=== PATIENT | female | born 1955 | race Caucasian/White ===

== ENCOUNTER 2021-07-05 08:51 | Inpatient (IN) | payer MEDICARE ==
[~2021-07-05] VITALS: Ht 177.8 cm; Wt 71.7 kg
[~2021-07-05 08:51] MED LIST: ADVIL200 MG PO; AEROCHAMBER1 PKT INH; AZITHROMYCIN250 MG PO; BENADRYL25 MG PO; CALCIUM 600 +1 EAC5 PO; CYMBALTA20 MG PO; CYMBALTA30 MG PO; PREDNISONE20 MG PO; PROVENTIL HFA6.7 GM INH; SLEEP AID25 M1 PO; XANAX1 MG PO; ZYPREXA10 MG PO; ZYPREXA15 MG PO
--- OUTSIDE RECORDS SUMMARY | 2021-07-05 08:54 | XMS ---
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 [place] has no Care Guidelines for this patient. [place] VISIT COUNT (12 MO.) 1 ZAY Quevedo TOTAL 1 NOTE: Visits indicate total known visits. ED/C VISIT TRACKING (12 MO.) 07/05/2021 08:52 ZAY Santoro OR TYPE: Emergency COMPLAINT: - WEAKNESS, DIFFICULTY BREATHING INPATIENT VISIT TRACKING (12 MO.) No inpatient visits to display in this time frame [id number]
--- NOTE | 2021-07-05 12:54 | NUR ---
PATIENT ASSESSMENT COMPLETE. MEDICATIONS GIVEN ORDERED. PATIENT OXYGEN SATURATION IS 97 ON 3 LITERS OF OXYGEN. AUDIBLE WHEEZING THROUGHOUT LUNGS. PATIENT DENIES SHORTNESS OF BREATH AND COUGH. RR IS 19. PATIENT HEART RATE IS 81 BPM AND IS IN A SINUS RHYTHM. PATIENT IS INCONTIENT OF URINE AND LAST BM WAS 07/03/21. PATIENT SAYS IT IS NORMAL FOR HER TO GO A FEW DAYS WITHOUT A BM. BOWEL SOUNDS WERE ACTIVE DENIED NAUSEA AT THIS TIME. DENIES ANY PAIN JUST TIGHTNESS IN HER CHEST. PATIENT UPDATED ON PLAN OF CARE. CALL LIGHT WITHIN REACH NO FUTHER NEEDS.
--- NOTE | 2021-07-05 15:00 | NUR ---
PATIENT DAUGHTER INOCENTE TOOK HER PERSONAL BELONGINGS HOME. THIS INCLUDES HER PURSE.
--- NOTE | 2021-07-05 16:03 | NUR ---
PATIENT ASSESSMENT COMPLETE. PATIENT OXYGEN SATURATION IS 94% ON THREE LITER OF OXYGEN VIA NASAL CANULA. PATIENT HAS AUDIBLE WHEEZING. DENIES SHORTNESS OF BREATH. RR IS 22. HEART RATE IS 81 BPM. SINUS RHYTHM. PATIENT DENIES ANY PAIN. URINE IS YELLOW AND CLEAR. NO BM TODAY. BOWEL SOUNDS ARE ACTIVE. PATIENT UPDATED ON PLAN OF CARE. CALL LIGHT WITHIN REACH NO FUTHER NEEDS.
[2021-07-05] MEDS ORDERED: ALPRAZOLAM0.5 MG PO (16:24)
[2021-07-05] MEDS ORDERED: DULOXETINE HCL60 MG PO (16:26)
[2021-07-05] MEDS ORDERED: DULOXETINE HCL30 MG PO (16:26)
[2021-07-05] MEDS ORDERED: BENZTROPINE MESY1 MG PO (16:26)
[2021-07-05] MEDS ORDERED: OXYBUTYNIN CHLO10 MG PO (16:27)
[2021-07-05] MEDS ORDERED: ZIPRASIDONE HCL80 MG PO (16:27)
--- NOTE | 2021-07-05 17:25 | NUR ---
Medications reconciled using pharmacy records, viewing prescription bottles and interview with patient and her daughter/caregiver
--- NOTE | 2021-07-05 19:49 | NUR ---
REPORT RECEIVED FROM VIDYA FULLER. PT AWAKE IN BED, DENIES NEEDS. RT IN TO WORK WITH PT.
--- NOTE | 2021-07-05 20:05 | NUR ---
ASSESSMENT DONE, PT WAS SLEEPING BUT AWAKENED TO TOUCH. DENIES NEEDS, 88% WITH O2 OUT OF NOSE, REPLACED AND SPO2 UP TO 95%. LUNGS ARE COARSE ALL OVER WITH FEW SCATTERED WHEEZES HEARD. SLIGHTLY LABORED WITH TALKING. DENIES NEEDS AND STATES HER BREATHING IS IMPROVED SINCE ARRIVAL TO HOSPITAL.
--- NOTE | 2021-07-05 20:45 | NUR ---
PT UP TO BSC TO VOID 100ML YELLOW URINE. PT MORE SOB WITH EXERTION AND INCREASED AUDIBLE WHEEZING. SATS STAYED 92% AND PT RECOVERED QUICKLY WITH SPO2 95% RR 20. BACK IN BED TO WATCH TV.
--- NOTE | 2021-07-05 22:30 | NUR ---
PT HAS FALLEN ASLEEP, OXYGEN REMAINS AT 3L/NC WITH SPO2 90%, RESP SLIGHTLY LABORED.
--- NOTE | 2021-07-06 00:30 | NUR ---
IN TO DO ASSESSMENT, PT REMAINS ASLEEP DURING AUSCULTATION/ASSESSMENT. LUNGS HAVE RHONCHI AND EXW WHEEZES THROUGHOUT. CONT TO WEAR OXYGEN AT 3L/NC WITH SPO2 90%, RR 18. RESP SLIGHTLY LABORED AT REST.
--- NOTE | 2021-07-06 02:00 | NUR ---
PT REMAINS SLEEPING ON 3L/O2/NC WITH SPO2 90%.
--- NOTE | 2021-07-06 04:45 | NUR ---
IN TO DO ASSESSMENT, PT REMAINS ASLEEP. LUNGS SOUNDING A BIT BETTER WITH LESS RHONCHI AND WHEEZING. SPO2 89-90% ON 3L, RR 26. HR 90'S.
--- NOTE | 2021-07-06 06:45 | NUR ---
PT UP TO BSC, BACK TO BED, O2 AND HR REMAIN STEADY WHILE UP.
--- NOTE | 2021-07-06 08:00 | NUR ---
RECEIVED REPORT AT 0700. PT WAS AWAKE IN BED AT THAT TIME ON 3L O2 NC. AT THIS TIME O2 SATS ARE 87-88% ON 3L O2NC. O2 WAS INCREASED TO 5L WITHOUT ANY INCREASE IN O2 SATS NOTED. PT ALSO STATED THAT SHE HAS SOME SOB. BI-PAP WILL BE UTILIZED AGAIN ONCE MEDS ARE GIVEN. ALL LOBES HAVE INSP. WHEEZING PRESENT AND ARE TIGHT. RR WDL SO FAR. ABD SOUNDS PRESENT, NO PERIPH. EDEMA NOTED. PT HAS NO OTHER COMPLAINTS AT THIS TIME. PT WILL STAY ON BI-PAP LONG SHE CAN TOLERATE IT.
--- NOTE | 2021-07-06 09:35 | NUR ---
PT AT THIS TIME IS BACK ON 3L O2 NC. PT WANTED A BREAK FROM BI-PAP. WILL CONTINUE TO MONITOR.
--- NOTE | 2021-07-06 11:18 | NUR ---
PT REMAINS ON 3L O2 NC AND SEEMS TO BE DOING WELL OVERALL. PT TO TRANSFER TO MED SURG SOON.
--- NOTE | 2021-07-06 13:00 | NUR ---
PT IN ROOM. PT REMAINS ON NC AND IS DOING WELL.
--- NOTE | 2021-07-06 13:24 | NUR ---
REPORT RECEIVED FROM JONNY HASSAN. AWAITING PTS ARRIVAL TO MED/SURG.
--- NOTE | 2021-07-06 13:35 | NUR ---
REPORT CALLED TO MED SURG A FEW MINUTES AGO. PT LEFT UNIT NOW TO 115.
--- NOTE | 2021-07-06 13:36 | NUR ---
PT ARRIVED FROM CCU BY BED. RR NOTED TO BE 24-28, VITAL SIGNS STABLE. PT DENIES PAIN AND NAUSEA. PT ABLE TO TALK IN COMPLETE SENTENCES. IV'S ASSESSED. PT REPORTS AC IV IS BOTHERING HER AND SHE WOULD LIKE IT REMOVED. AC IV DC'D PER PROTOCOL. DRESSING TO RIGHT WRIST IV LOOSE, DRESSING CHANGED PER PROTOCOL, IV FLUISHES WELL, NO S/S OF PHLEBITIS NOTED. MEDICATION GIVEN. IV SALINE LOCKED, ALCOHOL CAP APPLIED. PT REPORTS ONGOING GENERALIZED WEAKNESS. PT ALERT AND ORIENTED BUT GITTERY IN BED, FIGITING AND MOVING AROUND FREQUENTLY. PT REPORTS FEELING ANXIOUS AND REQUESTS ALPRAZOLAM, SEE MAR FOR MEDICATION GIVEN. LUNG SOUNDS TIGHT AND COURSE. PT REMAINS ON 5L O2 BY MN WITH OXGYEN SATRUATIONS ABOVE 90%. JELLO AND ICE WATER PROVIDED. PT DENIES ADDITIONAL REQUESTS OR COMPLAINTS. CALL LIGHT WITHIN REACH. BED RAILS UP. PT DEMONSTRATES USE OF CALL LIGHT.
--- NOTE | 2021-07-06 14:54 | NUR ---
THIS RN TO ROOM TO CHECK ON PT. PT WATCHING TV, RESTING IN BED WITH HEAD OF BED ELEVATED TO 64 DEGREES. PT REPORTS ANXIETY MEDICINE "IS STARTING TO HELP" REPORTS DECREASED IN ANXIETY, FIGITING AND RESTLESSNESS IN BED IMPROVED. PT CONTINUES TO MOVE LEGS IN BED CONSISTANTLY, UPPERBODY AND ARMS NOW RELAXED. OXGYEN SATURATION 92% ON 5L O2 BY NC. PT DENIES ADDITIONAL REQUESTS OR COMPLAINTS. CALL LIGHT WITHIN REACH. BED RAILS UP.
--- NOTE | 2021-07-06 15:40 | NUR ---
THIS RN TO ROOM TO CHECK ON PT. PT UP TO SHOWER WITH POLE TESTER ASSISTANCE. NO REQUESTS OR COMPLAINTS. CALL LIGHT WITHIN REACH.
--- NOTE | 2021-07-06 15:49 | EKG ---
[facility] [address] [facility] [place] [address] Signed Normal sinus rhythm Normal ECG No previous ECGs available Confirmed by ANDRIA AREVALO MD ([id number]) on 07/06/2021 3:49:01 PM Electronically Signed By: ANDRIA AREVALO MD 07/06/21 1549 PATIENT NAME: ELIZ MONTES Electrocardiogram DATE OF : 59 PHYSICIAN: ANDRIA AREVALO MD REPORT #: [id number] REPORT IS CONFIDENTIAL AND NOT TO BE RELEASED WITHOUT AUTHORIZATION
--- NOTE | 2021-07-06 15:50 | NUR ---
PT TRANSFERED FROM CCU THIS SHIFT, HERE FOR COPD EXACERBATION. PT OUT OF BED WITH 1 PERSON STAND BY ASSIST. GENERAZLIED WEAKNESS NOTED. SHOWER THIS SHIFT. PT ADVANCED TO REGULAR DIET, TOLERATING WELL. PT REMAINS ON 5L O2 BY NC AT THIS TIME, SHORT EPISODE OF BIPAP USE THIS MORNING WHILE IN CCU. PRN ALPRAZOLAM GIVEN FOR ANXIETY AND RESTLESSNESS. NICOTENE PATCH IN PLACE. ABX PER MD ORDER. LUNG SOUNDS COURSE AND TIGHT THROUGHOUT. PT ALERT AND ORIENTED TO ALL. PT VOIDING QUANTITIY SUFFICIENT. PT USES CALL LIGHT AND MAKES NEEDS KNOWN.
--- NOTE | 2021-07-06 16:26 | NUR ---
LEAD POURER REPORTS PT ACCIDENTLY PULLED HER IV DURING SHOWER. THIS RN TO ROOM. PT FINISHED WITH SHOWER AND RESTING IN BED. PT REPORTS HER SHOWER FELT "REALLY GOOD." PT DENIES FEELINGS OF SHORTNESS OF BREATH AT THIS TIME. PT REPORTS "THE IV JUST GO TOO WET AND FELL OUT." GAUZE AND COBAN IN PLACE PER LEAD POURER'S. NEW IV STARTED PER PROTOCOLL TO RIGHT FORARM. BRISK BLOOD RETURN NOTED WITH IV START. IV SALINE LOCKED AT THIS TIME. ALCOHOL CAP APPLIED. NO ADDITIONAL REQUESTS OR COMPLAINTS AT THIS TIME. CALL LIGHT WITHIN REACH. BED RAILS UP.
--- NOTE | 2021-07-06 17:30 | NUR ---
THIS RN ROOM TO CHECK ON PT. PT SITTING UP IN BED WITH HEAD OF BED ELEVATED TO 45 DEGREES EATING DINNER. PT ENCOURAGED TO GET UP TO CHAIR, PT DECLINES. PT DENIES ADDITIONAL REQUESTS OR COMPLAINTS. CALL LIGHT WITHIN REACH. BED RAILS UP.
--- NOTE | 2021-07-06 19:44 | NUR ---
RECEIVED REPORT FROM DAY SHIFT TN. PATIENT IS RESTING IN BED. PATIENT DENIES ANY NEEDS. CALL LIGHT IN REACH.
--- NOTE | 2021-07-06 22:30 | NUR ---
PATIENT ASSESMENT COMPLETED. PATIENTS VITALS TAKEN AND RECORDED. INTAKE AND OUPUT RECORDED. PATIENT DENIES ANY SOB. PATIENT TITRATED DOWN TO 3L NC. PATIENTS SCHEDULED MEDICATIONS GIVEN PER ORDER. PRN ANXIETY MEDICATION GIVEN PER PATIENT REQUEST. PATIENT DENIES ANY FURTHER NEEDS. CALL LIGHT IN REACH. FRESH ICE WATER PROVIDED. JUICE PROVIDED. CALL LIGHT AND BELINGINGS ARE WITHIN REACH.
--- NOTE | 2021-07-07 00:55 | NUR ---
PATIENT IS RESTING IN BED WITH EYESE CLOSED, RR 15. CALL LIGHT IN REACH.
--- NOTE | 2021-07-07 03:15 | NUR ---
PATIENT IS RESTING IN BED WITH EYES CLOSED, RR 15. CALL LIGHT IN REACH.
--- NOTE | 2021-07-07 04:30 | NUR ---
PATIENT CALLED TO USE RESTROOM. PATIENT WAS ABLE TO VOID. PATIENTS VITALS TAKEN AND RECORDED. INTAKE AND OUPUT RECORDED. PATIENT TITRATED TO 2L VIA NC. PATIENT DENIES ANY SOB. PATIENTS ICE WATER REFILLED. PATIENT DENIES ANY FURTHER NEEDS. CALL LIGHT AND BELONGINGS ARE WITHIN REACH.
--- NOTE | 2021-07-07 06:29 | NUR ---
PATIENTS SCHEDULED MEDICATIONS GIVEN PER ORDER. PATIENT DENIES ANY NEEDS. CALL LIGHT IN REACH.
--- NOTE | 2021-07-07 07:30 | NUR ---
RECEIVED REPORT AT 0700, PT WAS RESTING IN BED AT THAT TIME. NO NEW CONCERNS NOTED AT THAT TIME.
--- NOTE | 2021-07-07 09:00 | NUR ---
RIGHT LOBES HAVE INSP. AND EXPIR. WHEEZING PRESENT, LLL IS THIGHT WITH SOME COARSNESS, SARAH IT COARSE. PT WAS PUT ON 3L O2 NC DUE TO O2 SATS OF 87-88% ON 2L. PT DENIES SOB. PT SEEMS TO TOLERATE ACTIVITY WELL OVERALL. ABD SOUNDS PRESENT, NO PERIPH. EDEMA NOTED. PT DID NEED SOME XANAX THIS MORNING FOR HER ANXIETY.
--- NOTE | 2021-07-07 09:08 | NUR ---
Vitals, I&Os are complete. O2 was 90, B/P was 105/58, Map was 69, Pulse was 82 Resp. was 24; RN was notified. Call light is in reach. Patient said they had shower yesterday and refused one today. Patient was informed about a bed bath option in case she changes her mind.
--- NOTE | 2021-07-07 11:00 | NUR ---
PT IN ROOM. PT O2 SATS ON 3L O2 IS 91% AT THIS TIME.
--- NOTE | 2021-07-07 14:00 | NUR ---
PT REMAINS ON 3L O2 NC SO FAR. ALL RIGHT LOBES ARE COARSE BUT WITH MORE AIR MOVEMENT PRESENT. SARAH CLEAR, LLL COARSE. LEFT LOBES ALSO HAVE MORE MOVEMENT PRESENT. NO NEW COCNERNS WERE NOTED WITH THIS ASSESSMENT. ONLY THING OF NOTE, PT IS ANXIOUS AT THIS TIME.
--- NOTE | 2021-07-07 17:00 | NUR ---
PT STILL ON RA (DONE BY ) AND STILL HAS O2 SATS >90% SO FAR.
--- NOTE | 2021-07-07 17:59 | NUR ---
PT STATED THE DAY OUT WITH 3L O2 NC. LUNG SOUNDS AT TIMES HAVE WEEZING PRESENT AND ARE ALSO COARSE. OVERALL IT CAN BE SAID THAT THERE IS MORE AIR MOVEMENT IN ALL LOBES THAN THERE WAS YESTERAY. PT HAS BEEN ON RA SINCE ABOUT MID AFTERNOON AND SO FAR HAS O2 SATS >90%. OVERALL NO NEW CONCERNS WERE NOTED TODAY WITH ASSESSMENTS.
--- NOTE | 2021-07-07 19:00 | NUR ---
SHIFT REPORT RECEIVED FROM DAYSHIFT JONNY HASSAN AT BEDSIDE, pt AWAKE AND RESTING IN BED, ON RA. RR EVEN AND UNLABORED. NO DISTRESS NOTED, CALL LIGHT IN REACH. pt INDEPENDENT IN ROOM PER SHIFT REPORT. BOARD UPDATED.
--- NOTE | 2021-07-07 21:40 | NUR ---
in to get vitals, ice water provided, pt recently up to the toilet, no further needs at this time
--- NOTE | 2021-07-07 22:06 | NUR ---
ASSESSMENT COMPLETE, SCHEDULED MEDS GIVEN (SEE EMAR). VSS, pt ON RA, SPO2 LOW 90'S. pt DENIES SOB OR DYSPNEA. INDEPENDENT IN ROOM, CURRENTLY RESTING IN BED WITH HOB ELEVATED. IV SITE WNL, FLUSHES EASILY. pt DENIES PAIN, CALL LIGHT IN REACH. FRESH WATER AT BEDSIDE, NO FURTHER NEEDS OR CONCERNS.
--- NOTE | 2021-07-07 23:26 | NUR ---
pt RESTING IN BED AWAKE AND WATCHING TV, NO NEEDS OR CONCERNS VERBALIZED. CALL LIGHT IN REACH, RR EVEN AND UNLABORED.
--- NOTE | 2021-07-07 23:54 | NUR ---
pt RESTING IN BED, EYES CLOSED AND RR EVEN AND UNLABORED. NO DISTRESS NOTED, IN ROOM. CALL LIGHT IN REACH.
--- NOTE | 2021-07-08 01:30 | NUR ---
pt RESTING IN BED QUIETLY WITH EYES CLOSED, RR EVEN AND UNLABORED. CALL LIGHT IN REACH.
--- NOTE | 2021-07-08 03:48 | NUR ---
pt RESTING IN BED WITH EYES CLOSED, RR EVEN AND UNLABORED. CALL LIGHT IN REACH.
--- NOTE | 2021-07-08 05:08 | NUR ---
IN TO GET VITALS, FRESH ICE WATER FILLED, PT RESTING COMFORTABLY
--- NOTE | 2021-07-08 05:09 | NUR ---
ASSESSMENT COMPLETE, NO NEW CHANGES OR CONCERNS. VSS, pt ON RA. DENIES PAIN AND NAUSEA. CALL LIGHT IN REACH. pt INDEPENDENT IN ROOM.
--- NOTE | 2021-07-08 05:17 | NUR ---
pt HAS NOT HAD A BM SINCE ARRIVAL TO HOSPITAL, NIO FOR MIRALAX ADDED, COMPENSATION EXPERT TANVIR AWARE.
--- NOTE | 2021-07-08 05:34 | NUR ---
SCHEDULED STERIOD GIVEN, SEE EMAR. IV SITE WNL, NO FURHTER NEEDS, CALL LIGHT IN REACH.
--- NOTE | 2021-07-08 07:46 | NUR ---
PT RESTING IN BED WATCHING TV AT TIME OF SHIFT EXCHANGE. DENIES NEEDS OR DISCOMFORTS. BREATHING EVEN AND UNLABORED ON RA. BREAKFAST ORDERED, NEEDED ITEMS IN REACH.
--- NOTE | 2021-07-08 09:15 | NUR ---
PATIENT IN BED WATCHING TV. VITALS AND I&O'S CHARTED. WARM WASHCLOTH GIVEN. ORAL CARE DONE. CALL LIGHT IN REACH. NO FURTHER NEEDS AT THIS TIME. PATIENT SAID SHOWER MAYBE LATER.
--- NOTE | 2021-07-08 10:43 | NUR ---
pt continues without c/o or sob. sitting upright in bed watching tv.
[2021-07-08] MEDS ORDERED: PREDNISONE20 MG PO (11:28)
[2021-07-08] MEDS ORDERED: DOXYCYCLINE HY100 MG PO (11:29)
[2021-07-08] MEDS ORDERED: ADVAIR 250-501 EACH INH (11:32)
== END 2021-07-08 12:35 | disposition home or self-care (01) | DRG 189 ==
LOC: ED 08:51 → MS 11:29 → CCU 11:29 → MS 07-06 13:36
PROVIDERS: ADMIT Internal Medicine; ATTEND Internal Medicine
PROC: 5A09457 Assistance with Respiratory Ventilation, 24-96 Consecutive Hours, Continuous Positive Airway Pressure (ICD-10-PCS; principal; 2021-07-05)
DX: J96.01 Acute respiratory failure with hypoxia (principal); J43.9 Emphysema, unspecified; F25.9 Schizoaffective disorder, unspecified; F17.210 Nicotine dependence, cigarettes, uncomplicated; F32.9 Major depressive disorder, single episode, unspecified; Z20.822 Contact with and (suspected) exposure to COVID-19; R39.15 Urgency of urination; J45.909 Unspecified asthma, uncomplicated; F41.9 Anxiety disorder, unspecified; Z90.710 Acquired absence of both cervix and uterus; Z90.89 Acquired absence of other organs; Z79.899 Other long term (current) drug therapy; Z79.51 Long term (current) use of inhaled steroids
CPT/HCPCS: 36600; 71045; 80053; 82803; 85007; 85025; 93005; 93010; 94640; 94660; 94760; C9803; J0696; J1650; J2930; J3475; U0003

== ENCOUNTER 2022-10-27 09:54 | Emergency (ER) | payer MEDICARE ==
[~2022-10-27] VITALS: Ht 180.3 cm; Wt 84.8 kg
[~2022-10-27 09:54] MED LIST changes: +ADVAIR 250-501 EACH INH; +ALPRAZOLAM0.5 MG PO; +BENZTROPINE MESY1 MG PO; +DOXYCYCLINE HY100 MG PO; +DULOXETINE HCL30 MG PO; +DULOXETINE HCL60 MG PO; +OXYBUTYNIN CHLO10 MG PO; +ZIPRASIDONE HCL80 MG PO
--- OUTSIDE RECORDS SUMMARY | 2022-10-27 09:56 | XMS ---
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 No follow up scheduled at this time. Next visit with PCP Dr. De La O on 08/21/2021. Care History Medical/Surgical 07/06/2021 [facility] - Patient is currently established with [facility]. If patient is seen in the ED during business hours. Please contact CHWs at [facility]. Care Recommendation: If this patient has had 5 or more Emergency Department visits in the last 12 months.\T\nbsp; Patient will require education on the scope and purpose of the ED as an acute care provider not a Primary Care Provider and should not be utilized for chronic conditions.\T\nbsp; These are guidelines and the provider should exercise clinical judgment when providing care. E.D. VISIT COUNT (12 MO.) [address] [facility] TOTAL 2 NOTE: Visits indicate total known visits. ED/UCC VISIT TRACKING (12 MO.) 10/27/2022 09:54 ZAY Santoro [place] TYPE: Emergency COMPLAINT: - STROKE SYMPTOMS 01/04/2022 17:15 ZAY Santoro [place] TYPE: Emergency COMPLAINT: - FALL DIAGNOSES: - halfway (current) use of inhaled steroids - Other half-way (current) drug therapy - Contact with and (suspected) exposure to COVID-19 - Nicotine dependence, unspecified, uncomplicated - Syncope and collapse - halfway (current) use of systemic steroids - Alcohol abuse with intoxication, unspecified INPATIENT VISIT TRACKING (12 MO.) No inpatient visits to display in this time frame [id number]
--- NOTE | 2022-10-28 15:59 | EKG ---
[facility] [address] [facility] [place] [address] Signed Normal sinus rhythm Normal ECG When compared with ECG of 04-JAN-2022 17:24, No significant change was found Confirmed by ANDRIA AREVALO MD ([id number]) on 10/28/2022 3:59:27 PM Electronically Signed By: ANDRIA AREVALO MD 10/28/22 1559 PATIENT NAME: ELIZ MONTES Electrocardiogram DATE OF : 59 PHYSICIAN: ANDRIA AREVALO MD REPORT #: [id number] REPORT IS CONFIDENTIAL AND NOT TO BE RELEASED WITHOUT AUTHORIZATION
== END 2022-10-27 13:40 | disposition home or self-care (01) ==
LOC: ED 09:54
DX: R41.82 Altered mental status, unspecified (principal); F19.90 Other psychoactive substance use, unspecified, uncomplicated; F17.200 Nicotine dependence, unspecified, uncomplicated; Z79.899 Other long term (current) drug therapy; Z79.52 Long term (current) use of systemic steroids
CPT/HCPCS: 36415; 70450; 70496; 70498; 71045; 80048; 80053; 81001; 81003; 82803; 84484; 85025; 85610; 85730; 87502; 93005; 93010; 99285-25; G0480; Q9967; U0003

== ENCOUNTER 2022-11-14 06:35 | Day surgery (SDC) | payer MEDICARE ==
[~2022-11-14] VITALS: Ht 180.3 cm; Wt 79.5 kg
[~2022-11-14 06:35] MED LIST changes: +FAMOTIDINE40 MG PO
--- NOTE | 2022-11-14 09:54 | NUR ---
11/14/22 0954 Debby [place] 0924 PATIENT ARRIVES TO PACU AWAKE. DENIES PAIN OR NAUSEA. HAS A HARD TIMES HOLDING STILL, VERY FIDGITY, BASELINE PER ENOC CHÁVEZ. RESP EVEN AND UNLABORED, ROOM AIR SATS >94%. PASSING GAS.
--- NOTE | 2022-11-14 10:52 | NUR ---
PT ALERT, ORIENTED AND APPEARS TO BE WAITING PATIENTLY.PT HAS HAD SCOPE BEFORE ANSWERED ALL QUESTIONS ASKED, ANSWERED. PT REQUESTED PRAYER, [facility] WILL FOLLOW
--- NOTE | 2022-11-15 07:27 | OR ---
[facility] [address] [place], [place] [address] Signed DATE OF OPERATION: 11/14/2022 SURGEON: Mono York MD PREOPERATIVE DIAGNOSES: 1. Personal history of colonic polyps in 2015 at age 60. 2. Minimal sigmoid diverticulosis. 3. Internal anal skin tags. POSTOPERATIVE DIAGNOSES: 1. Mild to moderate sigmoid diverticulosis. 2. Minimal internal hemorrhoids with associated skin tags. 3. Long redundant colon. 4. Polyps at rectum, 15 cm, distal transverse colon, hepatic flexure, proximal right colon and sigmoid colon at 20 cm. PROCEDURE: Colonoscopy with snare polypectomy and hot biopsy to the right colon. ESTIMATED BLOOD LOSS: None. INDICATIONS: Ana Luisa is a 67-year-old female, who came for screening colonoscopy in 2015 at the age of 60. She had several hyperplastic polyps and a tubular adenomatous polyp removed. None were large than 6 mm. She had minimal diverticulosis. She had internal anal skin tags. We used monitored anesthesia care because of the medications and her overall health. We had asked her to come back in 5 years. She has no family history of colon cancer or polyps. In the office, I gave her a pamphlet on colonoscopy. We reviewed the nature of the test. There is risk including, but not limited to gas bloating, crampy abdominal pain, bleeding, perforation requiring surgery, and missed diagnosis. We also reviewed the need for monitored anesthesia care given her overall functional status and significant past medical history. She had expressed understanding and wished to proceed. PROCEDURE NOTE: Ana Luisa was taken into the endoscopy suite and placed in the left lateral decubitus position. She was given IV sedation with propofol per our nurse claims adjuster supervisor. A digital rectal exam was performed and this was unremarkable. Not much in the way of external hemorrhoids. Good sphincter tone. No masses. The adult colonoscope had been Electronically Signed By: MONO YORK MD 11/15/22 0727 PATIENT NAME: ANA LUISA MONTES OPERATIVE REPORT DATE OF : 59 REPORT #: [id number] PHYSICIAN: MONO YORK MD PCP: JANETH BANKS MD REPORT IS CONFIDENTIAL AND NOT TO BE RELEASED WITHOUT AUTHORIZATION [facility] [address] [place], [place] [address] Signed introduced and advanced under direct visualization of the camera. She has an unbelievably long redundant colon. It was very difficult to find our landmarks. We think we were in the right colon. Her prep was overall good, but could have been a little better. We had placed her in the supine position twice and back into the left lateral decubitus position twice. We had two people helping with abdominal compression and even then we never made it to the cecum or the ileocecal valve. We used the snare and hot biopsy forceps to remove the above-mentioned polyps. It was impressive to see the length of the colon as we withdrew the scope. She does have some diverticula in the sigmoid colon. They are moderate in size, few to moderate in number, and scattered about. Once in the rectum, the scope had been retroflexed and she had minimal internal hemorrhoid tissue with associated skin tags. After this, the gas was suctioned out and the colonoscope removed. Ana Luisa tolerated the procedure quite well. RECOMMENDATIONS: I will see Ana Luisa back in my office in 7 to 14 days to review her results. She will need to consider a barium enema to more fully evaluate the proximal colon. Mono York MD [facility]/MODL /[id number] cc: MD Mono Oconnor MD Copies: MONO YORK MD ~ Electronically Signed By: MONO YORK MD 11/15/22 0727 PATIENT NAME: ANA LUISA MONTES OPERATIVE REPORT DATE OF : 59 REPORT #: [id number] PHYSICIAN: MONO YORK MD PCP: JANETH BANKS MD REPORT IS CONFIDENTIAL AND NOT TO BE RELEASED WITHOUT AUTHORIZATION
--- NOTE | 2022-11-15 15:30 | PATH ---
[facility] [address] [facility] [place], [place] [address] Signed SPECIMEN(S): A RECTAL POLYPS SPECIMEN(S): B COLON POLYPS AT 15CM SPECIMEN(S): C DISTAL TRANSVERSE COLON POLYPS SPECIMEN(S): D HEPATIC FLEXURE POLYP SPECIMEN(S): E PROXI ASCENDING/RIGHTCOLON POLYPS SPECIMEN(S): F DISTAL SIGMOID POLYPS AT 20CM SPECIMEN SOURCE: A. RECTAL POLYPS B. COLON POLYPS AT 15CM C. DISTAL TRANSVERSE COLON POLYPS D. HEPATIC FLEXURE POLYP E. PROXI ASCENDING/RIGHTCOLON POLYPS F. DISTAL SIGMOID POLYPS AT 20CM CLINICAL HISTORY: History of polyps, diverticulosis. Postop: Diverticulosis, long redundant colon, colon and rectal polyps, internal hemorrhoids. FINAL PATHOLOGIC DIAGNOSIS: A. Rectal polyps: - Hyperplastic polyps (multiple fragments). B. Colon polyps at 15 cm: - Hyperplastic polyps (multiple fragments). C. Disease transverse colon polyps: - Tubular adenoma with hyperplastic features (serrated polyp / adenoma). D. Hepatic flexure polyp: - Tubular adenoma (one fragment). E. Proximal ascending / right colon polyps: - Tubular adenoma (two fragments). - Hyperplastic polyp (one fragment). F. Distal sigmoid polyps at 20 cm: - Hyperplastic polyp (one fragment). JVR:[id number]:[id number] MICROSCOPIC EXAMINATION: Histologic sections of all submitted blocks are examined by light microscopy. These findings, together with the gross examination, support the pathologic diagnosis. GROSS DESCRIPTION: PATIENT NAME: MEADE,ELIZ ESTEPHANIA PATHOLOGY DATE OF : 59 REPORT #: [id number] PHYSICIAN: JODI HUNTER PCP: JANETH BANKS MD REPORT IS CONFIDENTIAL AND NOT TO BE RELEASED WITHOUT AUTHORIZATION [facility] [address] [place], [place] [address] Signed A. The specimen, labeled and designated "Meade, rectal polyps," is received in formalin and consists of six monreal soft tissue fragments, ranging from 0.1-0.2 cm. Entirely submitted in (A1). B. The specimen, labeled and designated "Meade, colon polyps at 15 cm," is received in formalin and consists of four monreal soft tissue fragments, ranging from 0.1-0.2 cm. Entirely submitted in (B1). C. The specimen, labeled and designated "Meade, distal transverse colon polyp," is received in formalin and consists of two monreal soft tissue fragments, ranging from 0.2-0.6 cm. Entirely submitted in (C1). D. The specimen, labeled and designated "Meade, hepatic flexure polyp," is received in formalin and consists of one monreal soft tissue fragment, 0.2 cm. Entirely submitted in (D1). E. The specimen, labeled and designated "Meade, proximal ascending colon polyp," is received in formalin and consists of three monreal soft tissue fragments, ranging from 0.1-0.2 cm. Entirely submitted in (E1). F. The specimen, labeled and designated "Meade, distal sigmoid colon polyps at 20 cm," is received in formalin and consists of one monreal soft tissue fragment, 0.2 cm. Entirely submitted in (F1). JS (under the direct supervision of a pathologist) The Gross Description was prepared using a voice recognition system. The report was reviewed for accuracy; however, sound-alike word errors, addition and/or deletions may occur. If there is any question about this report, please contact Client Services. PERFORMING LABORATORY: The technical component was performed by [facility], [address] [place] [id number] (CLIA# [id number]). The professional interpretation was performed by [facility], [facility], [address] [place] [address] (CLIA#: [id number]). Diagnostician: Kolton Marsh MD Pathologist Electronically Signed 11/15/2022 PATIENT NAME: ELIZ MEADE PATHOLOGY DATE OF : 59 REPORT #: [id number] PHYSICIAN: JODI PATHOLOGY PCP: JANETH BANKS MD REPORT IS CONFIDENTIAL AND NOT TO BE RELEASED WITHOUT AUTHORIZATION
== END 2022-11-14 10:15 | disposition home or self-care (01) ==
LOC: DS 06:35
PROVIDERS: ATTEND Colon & Rectal Surgery
PROC: 0D9Q8ZX Drainage of Anus, Via Natural or Artificial Opening Endoscopic, Diagnostic (ICD-10-PCS; principal; 2022-11-14 08:15)
DX: Z12.11 Encounter for screening for malignant neoplasm of colon (principal); D12.2 Benign neoplasm of ascending colon; D12.3 Benign neoplasm of transverse colon; K62.1 Rectal polyp; K21.9 Gastro-esophageal reflux disease without esophagitis; K57.30 Diverticulosis of large intestine without perforation or abscess without bleeding; K64.4 Residual hemorrhoidal skin tags; F41.9 Anxiety disorder, unspecified; J44.9 Chronic obstructive pulmonary disease, unspecified
CPT/HCPCS: 36415; 85025; J2704; J7121

== ENCOUNTER 2024-03-10 16:56 | Emergency (ER) | payer MEDICARE ==
[~2024-03-10] VITALS: Ht 180.3 cm; Wt 93.8 kg
[~2024-03-10 16:56] MED LIST changes: +ELIQUIS5 MG PO
[2024-03-10] MEDS ORDERED: ATORVASTATIN CA20 MG PO (17:09)
[2024-03-10] MEDS ORDERED: IPRAT-ALBUT 0.5-3 ML INH (17:09)
[2024-03-10] MEDS ORDERED: HYDROCODON-ACE1 EAC8 PO (17:09)
[2024-03-10] MEDS ORDERED: TRAZODONE HCL50 MG PO (17:10)
[2024-03-10 17:56] VITALS: BP 149/86
== END 2024-03-10 17:56 | disposition home or self-care (01) ==
LOC: ED 16:56
DX: M96.843 Postprocedural seroma of a musculoskeletal structure following other procedure (principal); F17.200 Nicotine dependence, unspecified, uncomplicated; F32.A Depression, unspecified; F41.9 Anxiety disorder, unspecified; Z79.51 Long term (current) use of inhaled steroids; Z79.899 Other long term (current) drug therapy; Z79.01 Long term (current) use of anticoagulants
CPT/HCPCS: 80053; 85025; 99283

== ENCOUNTER 2025-06-16 16:34 | Emergency (ER) | payer MEDICARE ==
[~2025-06-16] VITALS: Ht 180.3 cm; Wt 86.0 kg
[~2025-06-16 16:34] MED LIST changes: +ATORVASTATIN CA20 MG PO; +HYDROCODON-ACE1 EAC8 PO; +IPRAT-ALBUT 0.5-3 ML INH; +TRAZODONE HCL50 MG PO
[2025-06-16 18:37] VITALS: BP 119/72
== END 2025-06-16 18:34 | disposition home or self-care (01) ==
LOC: ED 16:34
DX: S20.211A Contusion of right front wall of thorax, initial encounter (principal); W18.30XA Fall on same level, unspecified, initial encounter; F17.200 Nicotine dependence, unspecified, uncomplicated; Z79.899 Other long term (current) drug therapy
CPT/HCPCS: 71045; 99283-25

== ENCOUNTER 2025-06-19 07:04 | Emergency (ER) | payer MEDICARE ==
[~2025-06-19] VITALS: Ht 180.3 cm; Wt 85.0 kg
[2025-06-19] MEDS ORDERED: EXEMESTANE25 MG PO (07:32)
[2025-06-19] MEDS ORDERED: FERROUS GLUCON324 M1 PO (07:32)
[2025-06-19] MEDS ORDERED: ALBUTEROL/IPRATROPIUM 3 ML NEB INH ONE (08:15)
[2025-06-19] MEDS ORDERED: HYDROCODON-ACE1 EA10 PO (09:11)
[2025-06-19 09:20] VITALS: BP 127/70
== END 2025-06-19 09:22 | disposition home or self-care (01) ==
LOC: ED 07:04
DX: R07.89 Other chest pain (principal); F17.200 Nicotine dependence, unspecified, uncomplicated; Z79.899 Other long term (current) drug therapy; Z79.02 Long term (current) use of antithrombotics/antiplatelets
CPT/HCPCS: 71045; 94640; 94667; 99283-25